=== PATIENT | male | born 1985 | race African-American/Black ===

== ENCOUNTER 2024-11-12 00:15 | Emergency (ER) | payer SELFPAY ==
[2024-11-12] MEDS ORDERED: Ketorolac Tromethamine 30 MG (1 mL) VIAL ONE (00:46)
[2024-11-12] MEDS ORDERED: Benzonatate 100 MG CAP ONE (01:04)
[2024-11-12] MEDS ORDERED: Dexamethasone 10 MG/ML VIAL ONE (01:08)
== END 2024-11-12 01:25 | disposition home or self-care (01) ==
LOC: ERS 00:15
DX: J02.9 Acute pharyngitis, unspecified (principal); F17.210 Nicotine dependence, cigarettes, uncomplicated
CPT/HCPCS: 87081; 87430; 96372; 99283; J1100; J1885